=== PATIENT | female | born 1990 | race Caucasian/White ===

== ENCOUNTER 2018-04-18 11:07 | Emergency (ER) | payer BC ==
[2018-04-18 11:32] VITALS: BP 146/101; PULSE 101; TEMP 97; BMI 22.3
[2018-04-18] MEDS ORDERED: TETANUS AND DIPHTHERIA TOXOID 0.5 ML DISP.SYRIN IM ONE (11:36)
--- NOTE | 2018-04-18 11:36 | PDOC ---
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 She washed her finger as soon as it happened. Last tetanus shot was 8 years ago. LMP two weeks ago. Labs were drawn from the source patient. Past History - Travel Traveled outside of the country in the last 30 days: No Close contact w/someone who was outside of country & ill: No - Past Medical History Allergies/Adverse Reactions: Allergies Allergy/AdvReac Type Severity Reaction Status Date / Time No Known Allergies Allergy Verified 04/18/18 11:35 Home Medications: Ambulatory Orders Ondansetron [Zofran Odt -] 4 mg SL TID #15 od.tablet 04/18/18 Raltegravir [Isentress -] 400 mg PO BID #60 tab 04/18/18 COPD: No CHF: No DVT: No Dementia: No Other medical history: GERD - Immunization History Immunization Up to Date: Yes - Suicide/Smoking/Psychosocial Hx Smoking History: Never smoked Hx Alcohol Use: No Drug/Substance Use Hx: No Review of Systems - Review of Systems Able to Perform ROS?: Yes Comments:: 04/18/18 14:01 CONSTITUTIONAL: Absent: fever, chills, diaphoresis, generalized weakness, malaise, loss of appetite MUSCULOSKELETAL: Absent: myalgia, arthralgia, joint swelling SKIN: Present: needle stick Absent: rash, itching, pallor HEMATOLOGIC/IMMUNOLOGIC: Absent: easy bleeding, easy bruising, lymphadenopathy, frequent infections NEUROLOGIC: Absent: headache, focal weakness or paresthesias, dizziness, unsteady gait, seizure, mental status changes, bladder or bowel incontinence PSYCHIATRIC: Absent: anxiety, depression, suicidal or homicidal ideation, hallucinations. Is the patient limited [place] proficient: No *Physical Exam - Vital Signs Last Vital Signs Temp Pulse Resp BP Pulse Ox 97.0 F L 101 H 18 146/101 H 99 04/18/18 11:27 04/18/18 11:27 04/18/18 11:27 04/18/18 11:27 04/18/18 11:27 - Physical Exam Comments: 04/18/18 14:02 GENERAL: The patient is awake, alert, and fully oriented, in no acute distress. HEAD: Normal with no signs of trauma. EYES: Pupils equal, round and reactive to light, extraocular movements intact, sclera anicteric, conjunctiva clear. EXTREMITIES: Normal range of motion, no edema. NEUROLOGICAL: Normal speech, normal gait. PSYCH: Normal mood, normal affect. SKIN: Needle stick to L second finger. No active bleeding. Warm, Dry, normal turgor, no rashes or lesions noted. Moderate Sedation - Procedure Monitoring Vital Signs: Procedure Monitoring Vital Signs Temperature 97.0 F L 04/18/18 11:27 Pulse Rate 101 H 04/18/18 11:27 Respiratory Rate 18 04/18/18 11:27 Blood Pressure 146/101 H 04/18/18 11:27 O2 Sat by Pulse Oximetry (%) 99 04/18/18 11:27 ED Treatment Course - LABORATORY CBC & Chemistry Diagram: 04/18/18 11:45 04/18/18 11:45 Medical Decision Making - Medical Decision Making 04/18/18 13:16 Patient is a 27-year-old female who presents to the ER after sustaining a needlestick while working. Exposure order set placed. Patient washed finger again with chlorhexidine scrub. Tetanus shot updated as the last one was not within the last 5 years Labs are grossly normal. Patient is HIV negative at this time. Patient opts to start prophylaxis as source patient is high risk for transmissible diseases (Patient is alcoholic and homeless). First dose of prophylaxis given in the ER today. Discharge with follow-up with occupational health. I discussed the physical exam findings, ancillary test results and final diagnoses with the patient. I answered all of the patient's questions. The patient was satisfied with the care received and felt comfortable with the discharge plan and treatment plan. The Patient agrees to follow up with the primary care physician/specialist within 24-72 hours. Return precautions were given. 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 As discussed, a screening test for the HIV virus was performed today. Your HIV test is Negative (normal). 2. As discussed, if you engaged in high risk-behavior in the three (3) months prior to this test, you could still potentially be at risk and you will need to be re-tested. 3. As discussed, avoid any high risk behavior in the future to minimize the chances of hernando HIV. - Post Discharge Activity Forms/Work/School Notes: Back to Work
[2018-04-18] MEDS ORDERED: HIV POST EXPOSURE PROPHYLAXIS KIT NR ONE (11:43)
[2018-04-18 12:00] LABS: BASO % 0.6 % (0-2.0); EOS % 1.9 % (0-4.5); HEMATOCRIT 42.1 % (32.4-45.2); HEMOGLOBIN 14.6 GM/dL (10.7-15.3); LYMPH % 25.9 % (8-40); MCH 30.8 pg (25.7-33.7); MCHC 34.7 g/dl (32.0-36.0); MEAN CELL VOLUME 88.8 fl (80-96); MONO % 8.6 % (3.8-10.2); PLATELET COUNT 236 K/MM3 (134-434); RBC 4.74 M/mm3 (3.60-5.2); RDW 13.3 % (11.6-15.6); WHITE BLOOD COUNT 7.7 K/mm3 (4.0-10.0)
[2018-04-18] MEDS ORDERED: HIV POST EXPOSURE PROPHYLAXIS KIT PO ONE (12:00)
[2018-04-18] MEDS ORDERED: DIPHTH,PERTUSS(ACELL),TET 0.5 ML DISP.SYRIN IM ONE ×2 (12:03→12:05)
[2018-04-18 12:32] LABS: ALBUMIN 4.4 g/dl (3.4-5.0); ALK PHOS 65 U/L (45-117); ANION GAP 6 MMOL/L (8-16); BILIRUBIN,TOTAL 0.3 mg/dL (0.2-1); BLOOD UREA NITROGEN 8 mg/dL (7-18); CALCIUM 9.1 mg/dL (8.5-10.1); CHLORIDE 103 mmol/L (98-107); CO2 29 mmol/L (21-32); CREATININE 0.7 mg/dL (0.55-1.3); GLUCOSE,RANDOM 78 mg/dL (74-106); SGOT/AST 22 U/L (15-37); SGPT/ALT 30 U/L (13-61); SODIUM 138 mmol/L (136-145); TOT PROT 7.9 g/dl (6.4-8.2)
[2018-04-20 04:09] LABS: HBsAG SCREEN Negative (Negative)
== END 2018-04-18 14:21 | disposition home or self-care (01) ==
LOC: JERFT 11:07
PROC: 3E0234Z Introduction of Serum, Toxoid and Vaccine into Muscle, Percutaneous Approach (ICD-10-PCS; principal; 2018-04-18)
DX: S61.231A Puncture wound without foreign body of left index finger without damage to nail, initial encounter (principal); W46.0XXA Contact with hypodermic needle, initial encounter; Y93.89 Activity, other specified; Y92.239 Unspecified place in hospital as the place of occurrence of the external cause; Y99.0 Civilian activity done for income or pay
CPT/HCPCS: 36415; 80053; 85025; 86317; 86706; 86803; 87340; 87389; 90471; 90715; 99281-25

== ENCOUNTER 2019-02-16 09:11 | Emergency (ER) | payer BC ==
[2019-02-16] MEDS ORDERED: FAMOTIDINE 20 MG/50 ML IVPB 20 MG/50 ML MG IVPB ONE (09:12)
[2019-02-16] MEDS ORDERED: ONDANSETRON 4 MG/2 ML VIAL IVPUSH ONE ×2 (09:12→12:06)
[2019-02-16] MEDS ORDERED: ACETAMINOPHEN 1000 MG/100 ML VIAL (NON FORMULARY) IVPB ONE (09:12)
[2019-02-16] MEDS ORDERED: SODIUM CHLORIDE 0.9% 1000 ML INFUS.BAG IV ONE ×3 (09:12→11:02)
[2019-02-16] MEDS ORDERED: METOCLOPRAMIDE HCL INJECTION 10 MG/2 ML VIAL IVPUSH ONE (09:17)
--- NOTE | 2019-02-16 09:23 | PDOC ---
History of Present Illness - General Chief Complaint: Nausea/Vomiting Stated Complaint: nvd Time Seen by Provider: 02/16/19 09:11 - History of Present Illness Initial Comments: 02/16/19 09:18 28yo female with pmhx of gerd/IBS with acute onset of abd pain, n/v/d this AM around 2am. Pt states she ate chili yesterday (unsure if the hamburger meat was old) and then ate shake shack last night. Pt denies f/c. Pt states watery stool now red in color, LLQ abd pain, multiple episodes of nbnb n/v. 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 Pt arrives vomiting- gastric contents. Pt with diffuse abd pain and ttp, no localized ttp. Pt denies urinary complaints. Pt is on OCP. Pt denies rhinorrhea , sore throat, cp/sob/cough. Pt states she tried zofran and hyocyamine at home this AM without relief. Pmhx: GERD, IBS All: NKDA Past History - Past Medical History Allergies/Adverse Reactions: Allergies Allergy/AdvReac Type Severity Reaction Status Date / Time No Known Allergies Allergy Verified 02/16/19 09:42 Home Medications: Ambulatory Orders Famotidine [Pepcid -] 20 mg PO DAILY #7 tablet 02/16/19 Metoclopramide HCl [Reglan] 10 mg PO Q8H PRN #12 tablet 02/16/19 Ondansetron [Zofran *Odt*] 8 mg SL TID PRN #15 od.tablet 02/16/19 COPD: No CHF: No DVT: No Dementia: No - Immunization History Immunization Up to Date: Yes - Psycho Social/Smoking Cessation Hx Smoking History: Never smoked Hx Alcohol Use: No Drug/Substance Use Hx: No Review of Systems - Review of Systems Able to Perform ROS?: Yes Is the patient limited Slovenian proficient: No Constitutional: No: Chills, Fever HEENTM: No: Nose Congestion, Throat Swelling Respiratory: No: Cough, Shortness of Breath Cardiac (ROS): No: Chest Pain ABD/GI: Yes: Diarrhea, Nausea, Vomiting, Abdominal cramping : No: Burning, Dysuria Musculoskeletal: No: Back Pain Integumentary: No: Rash Neurological: No: Headache, Paresthesia, Tingling, Tremors, Weakness, Ataxia All Other Systems: Reviewed and Negative *Physical Exam - Vital Signs 02/16/19 10:03 Selected Entries 02/16/19 09:11 Temperature 97.9 F Pulse Rate 125 H Respiratory 20 Rate Blood Pressure 145/100 Blood Pressure 115 Mean O2 Sat by Pulse 100 Oximetry (%) Weight 58.967 kg - Physical Exam General Appearance: Yes: Nourished, Apparent Distress, Other (actively vomiting during exam) HEENT: positive: EOMI, Normal Voice Neck: positive: Supple Respiratory/Chest: positive: Lungs Clear, Normal Breath Sounds. negative: Respiratory Distress Cardiovascular: positive: S1, S2, Tachycardia. negative: Edema Gastrointestinal/Abdominal: positive: Soft, Tenderness (mild diffuse ttp). negative: Guarding, Rebound Musculoskeletal: positive: Normal Inspection. negative: CVA Tenderness Extremity: positive: Normal Capillary Refill, Normal Inspection, Normal Range of Motion, Other (ambulatory with a steady gait) Integumentary: positive: Pale. 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 NML intact, Fully Oriented, Alert, Normal Mood/ Affect, Normal Response, Motor Strength 06/22 ED Treatment Course - LABORATORY CBC & Chemistry Diagram: 02/16/19 09:15 02/16/19 11:00 Medical Decision Making - Medical Decision Making 02/16/19 09:22 a/p: 28yo female with n/v/d this AM and abd cramping -no focal ttp, mild diffuse ttp -will send labs, ua, ucg -will hydrate, reglan, pepcid, tylenol -suspect food poisoning vs viral gastroenteritis -will monitor and reassess -pt appears pale and dehydrated 02/16/19 09:44 wbc 11.4 hgb 16 02/16/19 10:03 pt feeling better tbili 1.3 ast 41 02/16/19 11:01 bedside ultrasound without hydro, no pericholecystic fluid, no gallstones, no gbw thickening, normal cbd, small amount of urine in the bladder 02/16/19 11:12 pt ambulated to the bathroom and was able to give a urine sample 02/16/19 11:33 ua neg ucg neg 02/16/19 12:02 lipase neg 02/16/19 12:27 pt feeling better stable for dc to home with meds Discharge - Discharge Information Problems reviewed: Yes Clinical Impression/Diagnosis: Gastroenteritis Condition: Stable Disposition: HOME - Admission No - Additional Discharge Information Prescriptions: Famotidine [Pepcid -] 20 mg PO DAILY #7 tablet Metoclopramide HCl [Reglan] 10 mg PO Q8H PRN #12 tablet PRN Reason: Nausea Ondansetron [Zofran *Odt*] 8 mg SL TID PRN #15 od.tablet PRN Reason: Nausea - Follow up/Referral Referrals: Chandan Gallegos MD [Staff Physician] - - Patient Discharge Instructions Patient Printed Discharge Instructions: DI for Vomiting -- Adult, DI for Nausea -- Adult, DI for Diarrhea and Traveler's Diarrhea -- Adult Additional Instructions: call me if you feel worse. drink water, gatorade, BRAT diet. Clear liquids. - Post Discharge Activity
[2019-02-16] MEDS ORDERED: METOCLOPRAMIDE HCL INJECTION 10 MG/2 ML VIAL ONE (09:29)
[2019-02-16 09:39] LABS: HEMATOCRIT 50.7 % (32.4-45.2); HEMOGLOBIN 16.5 GM/dl (10.7-15.3); MCH 29.5 pg (25.7-33.7); MCHC 32.6 g/dl (32.0-36.0); MEAN CELL VOLUME 90.5 fl (80-96); PLATELET COUNT 287 K/MM3 (134-434); RDW 13.1 % (11.6-15.6); WHITE BLOOD COUNT 11.4 K/mm3 (4.0-10.8)
[2019-02-16 09:48] LABS: ALBUMIN 4.7 g/dl (3.4-5.0); BILIRUBIN,TOTAL 1.3 mg/dl (0.2-1); CALCIUM 9.3 mg/dl (8.5-10); CREATININE 0.6 mg/dl (0.55-1.3); POTASSIUM 4.5 mmol/L (3.5-5.1); TOT PROT 8.2 g/dl (6.4-8.2)
[2019-02-16 09:57] LABS: MAGNESIUM 1.8 mg/dL (1.8-2.4)
[2019-02-16 10:00] VITALS: BP 145/100; PULSE 125; TEMP 97.9; BMI 22.3
[2019-02-16 11:18] LABS: PLATELET ESTIMATE ADEQUATE
[2019-02-16 11:42] LABS: EPITHELIAL CELLS MODERATE /hpf; URINE MUCUS 1+
[2019-02-16 12:01] LABS: ALBUMIN 3.4 g/dl (3.4-5.0); BILIRUBIN,TOTAL 0.5 mg/dl (0.2-1); CALCIUM 7.5 mg/dl (8.5-10); CREATININE 0.6 mg/dl (0.55-1.3); POTASSIUM 4.4 mmol/L (3.5-5.1)
[2019-02-16] MEDS ORDERED: ONDANSETRON 4 MG/2 ML VIAL ONE (12:13)
== END 2019-02-16 12:45 | disposition home or self-care (01) ==
LOC: FER 09:11
PROC: 3E033NZ Introduction of Analgesics, Hypnotics, Sedatives into Peripheral Vein, Percutaneous Approach (ICD-10-PCS; principal; 2019-02-16)
PROC: 3E033GC Introduction of Other Therapeutic Substance into Peripheral Vein, Percutaneous Approach (ICD-10-PCS; 2019-02-16)
DX: K52.9 Noninfective gastroenteritis and colitis, unspecified (principal)
CPT/HCPCS: 36415; 80053; 81003; 81015; 83690; 83735; 84703; 85025; 99283-25; J0131; J7030